=== PATIENT | male | born 1975 | race Caucasian/White ===

== ENCOUNTER 2020-02-16 06:40 | Day surgery (SDC) | payer BC ==
[~2020-02-16] VITALS: Ht 195.6 cm; Wt 94.3 kg
--- NOTE | 2020-02-16 08:06 | NUR ---
02/16/20 0806 Sandra Monte 0801 PATIENT ARRIVES TO PACU SLEEPING, AWAKENS WITH VERBAL STIMULI. RESP EVEN AND UNLABORED, NC OFF.
--- NOTE | 2020-02-16 09:48 | OR ---
[facility] [address], [place] [address] Signed DATE OF OPERATION: 02/16/2020 SURGEON: Tracy Ashley MD PREOPERATIVE DIAGNOSIS: 1. Personal history of adenomatous polyps in 2016 (age 40). 2. Father with colon cancer in late 50s. 3. Maternal aunt with colon cancer in her late 50s to early 60s. 4. Intermittent rectal bleeding. 5. Brother with colon polyps in his 40s. POSTOPERATIVE DIAGNOSES: 1. A 4 mm polyp at 22 cm (distal sigmoid colon). 2. A 6 mm polyp at 15 cm. 3. Moderate internal and external hemorrhoids. PROCEDURE: Colonoscopy with hot biopsy. ESTIMATED BLOOD LOSS: None. INDICATIONS: Thea is a 44-year-old gentleman, who has a family history of colon cancer and polyps as listed above. He also has a personal history of adenomatous polyp removed at age 40. He returns now for followup colonoscopy. In the office, I gave him a pamphlet on colonoscopy and we looked at that together along with the risks including, but not limited to gas bloating, crampy abdominal pain, bleeding, perforation requiring surgery, and missed diagnosis. He understands fully that polyps can grow and become cancers over 8-12 years. Consequently, he and everyone in the family remains on the 5-year rotation. He tells me he has a little bit of intermittent rectal bleeding from time to time. He understands the need for IV conscious sedation. He has expressed understanding and would like to proceed. DESCRIPTION OF PROCEDURE: Thea was taken into our endoscopy suite and placed in the left lateral decubitus position. He said on this occasion he seemed to be quite nervous. Indeed, he took 10 mg of Versed and 200 mcg of fentanyl to cover the case. Thankfully, it is easy to pass the scope up through Thea and into the cecum. His prep was quite excellent. We could easily see the appendiceal orifice and the ileocecal valve. His prep was quite Electronically Signed By: TRACY ASHLEY MD 02/16/20 0948 PATIENT NAME: THEA RODRIGES OPERATIVE REPORT DATE OF : 79 REPORT #: [id number] PHYSICIAN: TRACY ASHLEY MD PCP: ZORAIDA ARCE MD REPORT IS CONFIDENTIAL AND NOT TO BE RELEASED WITHOUT AUTHORIZATION [facility] [address], [place] [address] Signed good. The scope was slowly withdrawn. The two polyps mentioned above were easily removed with the help of hot biopsy forceps. There was no diverticulosis noted. Upon retroflexion of the scope, we could see moderate internal hemorrhoids which match the moderate external hemorrhoids. His prostate gland is also just starting to get a little indurated. After this, the gas was suctioned out and the colonoscope removed. Mat tolerated the procedure quite well. RECOMMENDATIONS: I will see Mat back in my office in 7 to 14 days to review his results. He will continue on the 5-year rotation. Tracy Ashley MD ALB/MODL /[id number] cc: MD Zoraida Rosales MD Copies: TRACY ASHLEY MD, RUSSELL BARR MD ~ Electronically Signed By: TRACY ASHLEY MD 02/16/20 0948 PATIENT NAME: THEA RODRIGES OPERATIVE REPORT DATE OF : 79 REPORT #: [id number] PHYSICIAN: TRACY ASHLEY MD PCP: ZORAIDA ARCE MD REPORT IS CONFIDENTIAL AND NOT TO BE RELEASED WITHOUT AUTHORIZATION
--- NOTE | 2020-02-24 09:32 | PATH ---
[facility] [address] [place], [place] [address] Signed SPECIMEN(S): A COLON POLYP AT 22 CM SPECIMEN(S): B RECTAL POLYP AT 15 CM SPECIMEN SOURCE: A. COLON POLYP AT 22 CM B. RECTAL POLYP AT 15 CM CLINICAL HISTORY: Colonoscopy. History of polyps, family history of colon CA. MICROSCOPIC DESCRIPTION: Histologic sections of all submitted blocks are examined by light microscopy. These findings, together with the gross examination, support the pathologic diagnosis. FINAL PATHOLOGIC DIAGNOSIS: A. Colon, polyp at 22 cm, biopsy: - No significant histopathology. - There is no evidence of neoplasia. B. Rectum, polyp at 15 cm, biopsy: - Tubular adenoma. - There is no evidence of high grade dysplasia or malignancy. COMMENT: The sections from specimen A are architecturally normal without crypt distortion. There is no acute or chronic inflammation. There are no abnormal infiltrates. There is no evidence of inflammatory, hyperplastic or adenomatous polyps. TWK:[id number]:C2NR GROSS DESCRIPTION: Two specimens are received in two containers, labeled "ML." A. The specimen, labeled "ML, 1," and designated on the requisition "colon polyp at 22 cm," is received in formalin and consists of one carter soft tissue fragment that measures 0.3 cm in greatest dimension. The specimen is entirely submitted in cassette (A1). B. The specimen, labeled "ML, 2," and designated on the requisition "rectal polyp at 15 cm," is received in formalin and consists of one carter soft tissue fragment that measures 0.3 cm in greatest dimension. The specimen is entirely submitted in cassette (B1). AT (under the direct supervision of a pathologist) The Gross Description was prepared using a voice recognition system. The PATIENT NAME: THEA RODRIGES PATHOLOGY DATE OF : 79 REPORT #: [id number] PHYSICIAN: DESTINY PATHOLOGY PCP: ZORAIDA ARCE MD REPORT IS CONFIDENTIAL AND NOT TO BE RELEASED WITHOUT AUTHORIZATION [facility] [address] [place] [address] [place] [address] Signed report was reviewed for accuracy; however, sound-alike word errors, addition and/or deletions may occur. If there is any question about this report, please contact Client Services. PERFORMING LABORATORY: The technical component and professional interpretation were performed by [employer], [address] [place] [address] (Supervisor [employer]: Leann Gabriel MD; CLIA# [id number]). Diagnostician: Jeremías Enriquez MD Pathologist Electronically Signed 02/24/2020 Copies: ~ PATIENT NAME: THEA RODRIEGS PATHOLOGY DATE OF : 79 REPORT #: [id number] PHYSICIAN: DESTINY RUFFIN PCP: ZORAIDA ARCE MD REPORT IS CONFIDENTIAL AND NOT TO BE RELEASED WITHOUT AUTHORIZATION
== END 2020-02-16 08:45 | disposition home or self-care (01) ==
LOC: OPS 06:40 → DS 06:40 → OPS 06:45
PROVIDERS: ATTEND Colon & Rectal Surgery
PROC: 0DBE8ZZ Excision of Large Intestine, Via Natural or Artificial Opening Endoscopic (ICD-10-PCS; 2020-02-16)
PROC: 0DBP8ZZ Excision of Rectum, Via Natural or Artificial Opening Endoscopic (ICD-10-PCS; principal; 2020-02-16 06:45)
DX: D12.8 Benign neoplasm of rectum (principal); K64.8 Other hemorrhoids; K64.4 Residual hemorrhoidal skin tags; E78.5 Hyperlipidemia, unspecified; K21.9 Gastro-esophageal reflux disease without esophagitis; Z86.010 Personal history of colon polyps; Z80.0 Family history of malignant neoplasm of digestive organs; Z83.71 Family history of colonic polyps
CPT/HCPCS: 99153; G0500; J2250; J3010; J7121

== ENCOUNTER 2023-10-23 08:45 | Day surgery (SDC) | payer BC ==
[2023-10-20 09:28] VITALS: BP 119/78
[~2023-10-23] VITALS: Ht 195.6 cm; Wt 111.4 kg
--- NOTE | ~2023-10-23 | OR ---
[facility] [address] [place], [place] [address] Draft DATE OF OPERATION: 10/23/2023 SURGEON: Tracy Ashley MD PREOPERATIVE DIAGNOSIS: Bleeding left lateral internal and external hemorrhoids. POSTOPERATIVE DIAGNOSIS: Bleeding left lateral internal and external hemorrhoids. PROCEDURE: Left lateral hemorrhoidectomy x2. ESTIMATED BLOOD LOSS: 10 mL. FINDINGS: Thea had his main internal and external hemorrhoids at the 9 o'clock and 11 o'clock positions. Much smaller internal and external hemorrhoid at the 1 o'clock position. INDICATIONS: Thea is a 48-year-old gentleman, I have known for a few years. We have helped him in 2015 and 2019 with colonoscopies. We know he has minimal to moderate internal and external hemorrhoids. The left side is more so than the right. He has had a few colonic polyps removed. 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 He said that has been rough with respect to the hemorrhoids. He said by the end of the week he is quite miserable. He has to push the hemorrhoids back inside. He has to rest the entire weekend and to let the hemorrhoid swelling go down, so he can go back to work on Thursday. He has tried every conservative measure from our brochure including Benefiber and Balneol lotion. He said he was really frightened while in the shower and blood seemed to shoot clear over to the wall. He said that was it. He has no current primary care provider, so he had gone over to our local [facility]. He had been referred back to my office with respect to the above. In the office, Thea and I went through yet another brochure with respect to the hemorrhoids. We looked at that very carefully. He indeed has exhausted his conservative measures. We examined him once again, it is the left side really is the most troublesome and most dominant area. He understands he will need a traditional hemorrhoidectomy because most of his hemorrhoids is actually external below the dentate line. He understands this will be a day surgery. There is risk including, but not limited to bleeding, infection, scarring, change in contour of the skin as well as recurrent hemorrhoids. He PATIENT NAME: THEA RODRIGES OPERATIVE REPORT DATE OF : 79 REPORT #: [id number] PHYSICIAN: TRACY ASHLEY MD PCP: ZORAIDA YING MD REPORT IS CONFIDENTIAL AND NOT TO BE RELEASED WITHOUT AUTHORIZATION [facility] [address] [place] [id number] [place] understands this is a very painful surgery and he is probably going to be off work at least a couple of weeks if not longer. He will continue his conservative measures for hemorrhoids after the surgery. He has expressed understanding and would like to proceed. PROCEDURE IN DETAIL: I met with Thea and his girlfriend, Estrella, in our preop area. We answered their questions. Our nurse venture capital analyst provided him with a saddle block. After this, Thea was taken to the operating room and placed in the prone tea-knife position with appropriate padding and monitoring. He was provided monitored anesthesia care by our nurse venture capital analyst. He was given preoperative antibiotics and injection of subcutaneous heparin after his saddle block was completed. SCDs were utilized. We once again examined the area of the anal canal. He has good sphincter tone. There were no masses. With the half-lopez retractor, we examined the full extent of the anal canal. His largest hemorrhoid is in the left lateral 9 o'clock position. Moderate sized hemorrhoids at the 11 o'clock position, much smaller hemorrhoid at the 1 o'clock position. It is clear that he had bleeding from those two hemorrhoids on the left side. We approached the larger lateral hemorrhoid first and we tied the apex just above the dentate line. We excised the hemorrhoid carefully starting externally work our way internally and went over the sphincter muscles. We closed the internal component with a running locked 2-0 chromic suture. The external component of course was left open. We performed the same procedure for the moderate sized hemorrhoid at the 11 o'clock position. After this, we decided to leave the much smaller hemorrhoid alone at the 1 o'clock position. We went ahead and injected some additional local anesthetic in the left side of his anus circumferentially. We traveled from about the 12 o'clock position down to about the 6 o'clock position on the left side. All hemostasis was excellent. We then placed an ABD along with his mesh underwear. Thea was then rotated into the supine position onto his hospital bed, was taken into recovery room in stable condition. Tracy Ashley MD ALB/MODL /[id number] cc: Tracy Ashley MD PATIENT NAME: THEA RODRIGES OPERATIVE REPORT DATE OF : 79 REPORT #: [id number] PHYSICIAN: TRACY ASHLEY MD PCP: ZORAIDA YING MD REPORT IS CONFIDENTIAL AND NOT TO BE RELEASED WITHOUT AUTHORIZATION [facility] [address] [place], [place] [address] [place] Zoraida Ying MD Copies: TRACY ASHLEY MD, RUSSELL BARR MD ~ PATIENT NAME: THEA RODRIGES OPERATIVE REPORT DATE OF : 79 REPORT #: [id number] PHYSICIAN: TRACY ASHLEY MD PCP: ZORAIDA YING MD REPORT IS CONFIDENTIAL AND NOT TO BE RELEASED WITHOUT AUTHORIZATION
[~2023-10-23 08:45] MED LIST: CEFAZOLIN SODIUM 2 GM/20 ML SYR IV SCH; HEParin SOD (PORCINE) 5,000 UNIT/0.5 ML SYR SUB-Q SCH; IBLOOD GLUCOSE TEST STRIP 1 EA TEST VI PRN; LACTATED RINGER'S 1,000 ML IV SCH; LIDOCAINE HCL 1% 5 ML SDV INJ ONE
[2023-10-23] MEDS ORDERED: MIDAZOLAM HCL 2 MG/2 ML VIAL ONE (08:52)
[2023-10-23] MEDS ORDERED: BUPIVACAINE 0.75% IN DEXTROSE 2 ML AMP ONE (08:53)
[2023-10-23] MEDS ORDERED: LIDOCAINE HCL 2% 5 ML SDV ONE (08:53)
[2023-10-23 09:07] VITALS: BP 122/68
[2023-10-23] MEDS ORDERED: propofoL 200 MG/20 ML VIAL ONE ×2 (10:13→10:36)
[2023-10-23] MEDS ORDERED: KETOROLAC TROMETHAMINE 30 MG/ML VIAL ONE (11:01)
[2023-10-23] MEDS ORDERED: LACTATED RINGER'S 1,000 ML IV ONE (11:01)
--- NOTE | 2023-10-23 11:13 | NUR ---
10/23/23 1113 Jania Stovall PATIENT ARRIVES IN PACU ALERT AND TALKING WITH ME. HE DENIES PAIN.
[2023-10-23] MEDS ORDERED: HYDROmorphone HCL 1 MG/ML SYR IV PRN (11:30)
[2023-10-23] MEDS ORDERED: PROCHLORPERAZINE EDISYLATE 10 MG/2 ML VIAL IV PRN (11:30)
[2023-10-23] MEDS ORDERED: NALOXONE HCL 0.4 MG SYR IV PRN (11:30)
[2023-10-23] MEDS ORDERED: HYDROCODONE/ACETA 5/325 TAB PO PRN (11:30)
[2023-10-23] MEDS ORDERED: ondansetron HCL 4 MG/2 ML VIAL IV PRN (11:30)
[2023-10-23] MEDS ORDERED: OXYCODONE HCL5 MG PO (11:34)
[2023-10-23 11:37] VITALS: BP 117/61
== END 2023-10-23 11:49 | disposition home or self-care (01) ==
LOC: DS 08:45
PROVIDERS: ATTEND Colon & Rectal Surgery
PROC: 06BY0ZC Excision of Hemorrhoidal Plexus, Open Approach (ICD-10-PCS; principal; 2023-10-23 11:00)
DX: K64.8 Other hemorrhoids (principal); K64.4 Residual hemorrhoidal skin tags
CPT/HCPCS: J0690; J1644; J1885; J2001; J2250; J2704; J7121